=== PATIENT | male | born 1990 | race Two or more races ===

== ENCOUNTER 2023-09-28 07:50 | Emergency (ER) | payer OTHER ==
[~2023-09-28] VITALS: Ht 185.4 cm; Wt 93.0 kg
[2023-09-28] MEDS ORDERED: KETOROLAC TROMETHAMINE 60 MG VIAL IM ONE ×2 (08:54→09:00)
== END 2023-09-28 11:27 | disposition home or self-care (01) ==
LOC: ER 07:51
DX: M62.838 Other muscle spasm (principal)